=== PATIENT | female | born 1960 | race Caucasian/White ===

== ENCOUNTER 2024-11-08 13:57 | Outpatient (OUT) | payer OTHER, MEDICARE, SELFPAY ==
--- NOTE | 2024-11-08 14:10 | MR_ITS ---
The [address] [address] Patient Name: JOHN PAUL MORAES MRN: [id number] date: 1960 Sex: F Assigned Patient Location: MRI Current Patient Location: MRI Accession/Order Number: [id number] Exam Date: 11/08/2024 14:15 Report Date: 11/08/2024 15:49 At the request of: KYLIE CAMPBELL Procedure: MR head/brain wo/w con EXAM: MR head/brain wo/w con HISTORY: Parkinson's Disease Without Dyskinesia, Sensory Ataxia COMPARISON: None. TECHNIQUE: Multisequence MRI brain was performed with and without intravenous contrast. FINDINGS: There is no restricted diffusion to suggest acute infarct. There is no midline shift, mass effect, or abnormal extraaxial fluid collections. There are no abnormal parenchymal or leptomeningeal enhancement. The cortical sulci and ventricular system are within normal limits. There are a few nonspecific scattered foci of T2/FLAIR signal abnormality are identified in the bell and supratentorial white matter, likely reflect chronic microvascular ischemic changes. The major intracranial flow voids are visualized. The cerebellar tonsils are normal in position. The orbits demonstrate no suspicious enhancement or any focal lesions. The paranasal sinuses show no air-fluid level. The mastoid air cells are clear. The calvarium and extracranial soft tissues are unremarkable. MR/MR head/brain wo/w con IMPRESSION: No acute intracranial abnormality or abnormal intracranial enhancement. Minimal chronic microvascular ischemic changes. Electronically authenticated by: RUBÉN FERRARI Date: 11/08/2024 15:49
[2024-11-08 14:17] LABS: Estimated GFR (African America >60 (>=60 mL/min/1.73m^2); Estimated GFR (Non-African Ame 53 (>=60 mL/min/1.73m^2)
== END 2024-11-08 13:58 | disposition home or self-care (01) ==
LOC: MRI 13:58
PROVIDERS: Visit Provider Nurse Practitioner Family
DX: R27.8 Other lack of coordination (principal); G20.A1 Parkinson's disease without dyskinesia, without mention of fluctuations; M53.9 Dorsopathy, unspecified; Z51.81 Encounter for therapeutic drug level monitoring
CPT/HCPCS: 36415; 70553; 82565; A9575